=== PATIENT | male | born 1975 | race Caucasian/White ===

== ENCOUNTER 2020-10-21 15:56 | Emergency (ER) | payer OTHER ==
[2020-10-21] MEDS ORDERED: AUGMENTIN 875-1 EACH PO (16:59)
== END 2020-10-21 17:12 | disposition home or self-care (01) ==
LOC: ER1 15:56
DX: J32.9 Chronic sinusitis, unspecified (principal); K46.9 Unspecified abdominal hernia without obstruction or gangrene; F17.200 Nicotine dependence, unspecified, uncomplicated; Z88.1 Allergy status to other antibiotic agents
CPT/HCPCS: 99283

== ENCOUNTER 2021-09-18 15:16 | Emergency (ER) | payer OTHER ==
[~2021-09-18] VITALS: Ht 185.4 cm; Wt 93.0 kg
[~2021-09-18 15:16] MED LIST: AUGMENTIN 875-1 EACH PO
[2021-09-18 17:25] LABS: HEMOGLOBIN 14.3 gm/dl (14.0-17.5); RED BLOOD COUNT 4.77 M/UL (4.20-5.50); WHITE BLOOD COUNT 8.6 K/UL (4.5-11.0)
[2021-09-18 17:55] LABS: BUN/CREATININE RATIO 12 (0-10)
[2021-09-18] MEDS ORDERED: AMOXICILLIN875 MG PO (20:44)
== END 2021-09-18 21:05 | disposition home or self-care (01) ==
LOC: ER1 15:16
PROVIDERS: Student in an Organized Health Care Education/Training Program
DX: K40.90 Unilateral inguinal hernia, without obstruction or gangrene, not specified as recurrent (principal); L98.8 Other specified disorders of the skin and subcutaneous tissue
CPT/HCPCS: 80053; 81001; 83690; 85025; 99283